=== PATIENT | male | born 1950 | race Caucasian/White ===

== ENCOUNTER 2017-11-12 19:22 | Emergency (ER) | payer OTHER ==
--- NOTE | 2017-11-13 08:42 | UC ---
Discharge - Sign-Out/Discharge Documenting (check all that apply): Post-Discharge Follow Up All imaging exams completed and their final reports reviewed: No Studies - Discharge Plan Disposition: LEFT WITHOUT BEING SEEN Referrals: Anabella Soler MD [Primary Care Provider] - - Billing Disposition and Condition Disposition: Left Without Being Seen
== END 2017-11-12 19:40 | disposition left against medical advice (07) ==
LOC: UCCORT 19:22
DX: R05 Cough (principal); H93.93 Unspecified disorder of ear, bilateral; Z53.21 Procedure and treatment not carried out due to patient leaving prior to being seen by health care provider